=== PATIENT | male | born 1935 | race Caucasian/White ===

== ENCOUNTER 2021-05-31 09:26 | Day surgery (SDC) | payer MEDICARE ==
[2021-05-30 13:17] LABS: BASOPHILS # (AUTO) 0.1 X10'3 (0-0.2); BASOPHILS % (AUTO) 0.8 % (0-1); EOSINOPHILS # (AUTO) 0.5 X10'3 (0-0.9); EOSINOPHILS % (AUTO) 4.6 % (0-6); HEMATOCRIT 43.1 % (42.0-52.0); HEMOGLOBIN 14.5 g/dl (14.0-17.9); LYMPHOCYTES # (AUTO) 1.8 X10'3 (1.1-4.8); LYMPHOCYTES % (AUTO) 17.7 % (21-51); MEAN CORPUSCULAR HGB CONC 33.6 g/dL (33.0-36.5); MEAN CORPUSCULAR VOLUME 95.4 FL (78-98); MEAN PLATELET VOLUME 7.1 FL (7.4-10.4); MONOCYTES # (AUTO) 0.8 X10'3 (0-0.9); NEUTROPHILS # (AUTO) 6.9 X10'3 (1.8-7.7); NEUTROPHILS % (AUTO) 68.9 % (42-75); PLATELET COUNT 372 X10'3 (140-440); RED BLOOD COUNT 4.52 X10'6 (4.70-6.10); RED CELL DISTRIBUTION WIDTH 13.5 % (11.5-14.5); WHITE BLOOD COUNT 9.9 X10'3 (4.5-11.0)
[2021-05-30 13:31] LABS: PARTIAL THROMBOPLASTIN TIME 30 SECONDS (22-32)
[2021-05-30 13:32] LABS: ALBUMIN 3.9 G/DL (3.4-5.0); ANION GAP 9 (8-16); BLOOD UREA NITROGEN 24 MG/DL (7-18); BUN/CREATININE RATIO 15.7 (5.4-32.0); CALCIUM 9.2 MG/DL (8.5-10.1); CHLORIDE 106 MMOL/L (99-107); CREATININE 1.53 MG/DL (0.60-1.10); GLUCOSE 81 MG/DL (70-104); POTASSIUM 4.3 MMOL/L (3.5-5.1); SODIUM 143 MMOL/L (135-145); TOTAL CARBON DIOXIDE 28.3 MMOL/L (24-32); eGFR 43 ML/MIN
[~2021-05-31] VITALS: Ht 182.9 cm; Wt 87.7 kg
[2021-05-31] VITALS (10 sets, daily range): BP systolic 123–175; BP diastolic 60–82
[2021-05-31] MEDS ORDERED: cefazolin/dext.iso 2gm/50ml 50 ML IV ONE (09:42)
[2021-05-31] MEDS ORDERED: normal saline 1000ml 1,000 ML IV SCH ×2 (09:45→13:00)
[2021-05-31] MEDS ORDERED: fentaNYL/PF 50MCG/1 ML 2ML syringe ONE (09:47)
[2021-05-31] MEDS ORDERED: ceFAZolin 1000mg inj ONE (09:47)
[2021-05-31] MEDS ORDERED: midazolam 1 mg/ML 2ml injection ONE ×2 (09:47→11:07)
[2021-05-31] MEDS ORDERED: LIDOcaine 1% w/EPI 1:100,000 30ml vial (MDV) ONE (09:59)
[2021-05-31] MEDS ORDERED: POTA-280 PO (10:05)
[2021-05-31] MEDS ORDERED: FLO0.4C PO (10:05)
[2021-05-31] MEDS ORDERED: GABAPENTIN PO (10:05)
[2021-05-31] MEDS ORDERED: RIVA1.5C30 PO (10:05)
[2021-05-31] MEDS ORDERED: CARB-17 PO (10:05)
[2021-05-31] MEDS ORDERED: GLYC1TAB23 PO (10:05)
[2021-05-31] MEDS ORDERED: ESCI-8 PO (10:05)
[2021-05-31] MEDS ORDERED: CARB1TAB42 PO (10:05)
[2021-05-31] MEDS ORDERED: ROPI2TAB7 PO (10:05)
[2021-05-31] MEDS ORDERED: PANT40TA54 PO (10:05)
[2021-05-31] MEDS ORDERED: MEMA5TAB42 PO (10:05)
[2021-05-31] MEDS ORDERED: NIAC500C12 PO (10:06)
[2021-05-31] MEDS ORDERED: ENTA200T23 PO (10:12)
[2021-05-31] MEDS ORDERED: ASPI81TA52 PO (10:12)
[2021-05-31] MEDS ORDERED: LEVO15TA5 PO (10:12)
[2021-05-31] MEDS ORDERED: LISI20TA28 PO (10:12)
[2021-05-31] MEDS ORDERED: MONT-40 PO (10:12)
[2021-05-31] MEDS ORDERED: LEVO75TA PO (10:12)
[2021-05-31] MEDS ORDERED: PRIM50TA27 PO (10:15)
[2021-05-31] MEDS ORDERED: CHOL20002 PO (10:15)
[2021-05-31] MEDS ORDERED: HYDROcodone/acetaminophen 5mg/325mg tablet PO PRN (12:55)
[2021-05-31] MEDS ORDERED: HYDROcodone/acetaminophen 10/325mg tab PO PRN (12:55)
[2021-05-31] MEDS ORDERED: potassium chloride 10mEq ER tablet PO SCH (13:00)
[2021-05-31] MEDS ORDERED: GABA300C PO (13:06)
--- NOTE | 2021-05-31 13:42 | NUR ---
Requested pharmacy remove patient's home medications from [facility], this request was refused. Sinemet was the only medication administered from home medication list per MD
[2021-05-31] MEDS ORDERED: vancomycin/NS 1 GM ADD-VANTAGE 250 ML X 1 DOSE IV ONE (14:00)
--- NOTE | 2021-05-31 17:13 | NUR ---
Problems reprioritized. Patient report given, questions answered & plan of care reviewed with Carolyn MEZA.
[2021-05-31] MEDS ORDERED: glycopyrrolate 1mg tablet PO SCH (20:00)
[2021-05-31] MEDS ORDERED: memantine 5mg tablet PO SCH (20:00)
[2021-05-31] MEDS ORDERED: tamsulosin 0.4mg capsule PO SCH (20:00)
[2021-05-31] MEDS ORDERED: carbidopa/levodopa 50/200mg CR tablet PO SCH (21:00)
[2021-05-31] MEDS ORDERED: primidone 50mg tablet PO SCH (21:00)
[2021-06-01] MEDS ORDERED: aspirin 81mg, enteric-coated 1 TAB TABLET.DR PO SCH (08:00)
[2021-06-01] MEDS ORDERED: cholecalciferol (vitamin D3) 1,000 unit (25mcg) tablet PO SCH (08:00)
[2021-06-01] MEDS ORDERED: montelukast 10mg tablet PO SCH (08:00)
[2021-06-01] MEDS ORDERED: gabapentin 300mg capsule PO SCH (08:00)
[2021-06-01] MEDS ORDERED: ESCITALOPRAM OXALATE 5 MG TABLET PO SCH (08:00)
[2021-06-01] MEDS ORDERED: LEVOMEFOLATE 15 MG PO SCH (08:00)
[2021-06-01] MEDS ORDERED: niacin 500mg timed-release capsule PO SCH (08:00)
[2021-06-01] MEDS ORDERED: lisinopril 20mg tablet PO SCH (08:00)
[2021-06-01] MEDS ORDERED: levoTHYROXINE 75mcg tablet PO SCH (08:00)
[2021-06-01] MEDS ORDERED: pantoprazole 40mg Tablet.DR PO SCH (08:00)
[2021-06-01] MEDS ORDERED: ROPINIRole 1mg tablet PO SCH (08:00)
== END 2021-05-31 17:45 | disposition home or self-care (01) ==
LOC: SSTAY O 09:26
PROVIDERS: ATTEND Internal Medicine Cardiovascular Disease
DX: I49.5 Sick sinus syndrome (principal); I25.10 Atherosclerotic heart disease of native coronary artery without angina pectoris; I10 Essential (primary) hypertension; E78.5 Hyperlipidemia, unspecified; M54.30 Sciatica, unspecified side; G20 Parkinson's disease; E78.49 Other hyperlipidemia; Z95.1 Presence of aortocoronary bypass graft; Z88.1 Allergy status to other antibiotic agents; Z79.82 Long term (current) use of aspirin; Z79.899 Other long term (current) drug therapy; Z85.46 Personal history of malignant neoplasm of prostate; Z79.01 Long term (current) use of anticoagulants; Z98.1 Arthrodesis status; Z72.89 Other problems related to lifestyle; Z87.891 Personal history of nicotine dependence; Z80.0 Family history of malignant neoplasm of digestive organs; Z82.49 Family history of ischemic heart disease and other diseases of the circulatory system
CPT/HCPCS: 33208; 36415; 71046; 80048; 85025; 85610; 85730; 93005; 99152; 99153; C1785; C1894; C1898; J0690; J2250; J3010; J3370; J3490; A4565; A6258; A6449

== ENCOUNTER 2023-09-13 06:21 | Inpatient (IN) | payer MEDICARE ==
[~2023-09-13] VITALS: Ht 182.9 cm; Wt 84.1 kg
[~2023-09-13 06:21] MED LIST: ASPI81TA52 PO; CARB-17 PO; CARB1TAB42 PO; CHOL20002 PO; ENTA200T23 PO; ESCI-8 PO; FLO0.4C PO; GABA300C PO; GLYC1TAB23 PO; LEVO15TA5 PO; LEVO75TA PO; LISI20TA28 PO; MEMA5TAB42 PO; MONT-40 PO; NIAC500C12 PO; PANT40TA54 PO; POTA-280 PO; PRIM50TA27 PO; RIVA1.5C30 PO; ROPI2TAB53 PO
[2023-09-13 08:33] LABS: BASOPHILS # (AUTO) 0.2 X10'3 (0-0.2); BASOPHILS % (AUTO) 0.8 % (0-1); EOSINOPHILS # (AUTO) 0.2 X10'3 (0-0.9); EOSINOPHILS % (AUTO) 0.9 % (0-6); HEMATOCRIT 38.2 % (42.0-52.0); HEMOGLOBIN 12.8 g/dl (14.0-17.9); LYMPHOCYTES % (AUTO) 5.2 % (21-51); MEAN CORPUSCULAR HEMOGLOBIN 30.6 PG (27.0-31.0); MEAN CORPUSCULAR HGB CONC 33.5 g/dL (33.0-36.5); MEAN CORPUSCULAR VOLUME 91.3 FL (78-98); MEAN PLATELET VOLUME 6.5 FL (7.4-10.4); MONOCYTES # (AUTO) 1.2 X10'3 (0-0.9); MONOCYTES % (AUTO) 6.4 % (2-12); NEUTROPHILS % (AUTO) 86.7 % (42-75); PLATELET COUNT 595 X10'3 (140-440); RED BLOOD COUNT 4.19 X10'6 (4.70-6.10); RED CELL DISTRIBUTION WIDTH 14.4 % (11.5-14.5); WHITE BLOOD COUNT 18.5 X10'3 (4.5-11.0)
[2023-09-13] MEDS: normal saline 1000ML IV soln IVB ONE (08:57)
[2023-09-13 09:00] LABS: ALBUMIN 3.2 G/DL (3.4-5.0); ALBUMIN/GLOBULIN RATIO 0.7 (1.1-1.5); ALKALINE PHOSPHATASE 126 IU/L (46-116); ANION GAP 10 (8-16); BILIRUBIN,TOTAL 0.4 MG/DL (0.1-1.0); BLOOD UREA NITROGEN 21 MG/DL (7-18); CALCIUM 8.8 MG/DL (8.5-10.1); CHLORIDE 104 MMOL/L (99-107); GLUCOSE 96 MG/DL (70-104); LIPASE 40 U/L (16-77); POTASSIUM 4.8 MMOL/L (3.5-5.1); SODIUM 139 MMOL/L (135-145); TOTAL CARBON DIOXIDE 24.7 MMOL/L (24-32); TOTAL PROTEIN 7.6 G/DL (6.4-8.2); eCRCL 38 ML/MIN; eGFR 44 ML/MIN
[2023-09-13 09:21] LABS: ALANINE AMINOTRANSFERASE < 6 U/L (12-78); ASPARTATE AMINO TRANSFERASE 11 U/L (10-37)
[2023-09-13] MEDS ORDERED: AMIT50TA15 PO (10:20)
[2023-09-13] MEDS ORDERED: potassium Cl 40MEQ/1/2NS 520ml 520 ML IV PRN (11:40)
[2023-09-13] MEDS ORDERED: potassium Cl 20 mEq SR tablet PO PRN ×2 (11:40)
[2023-09-13] MEDS ORDERED: magnesium 2GM in 50ml NS 50 ML IV PRN (11:40)
[2023-09-13] MEDS ORDERED: magnesium hydroxide 30ml (MOM) UD suspension PO PRN (11:40)
[2023-09-13] MEDS ORDERED: HYDROmorphone/PF 0.2 MG/ML SYRINGE IV PRN (11:40)
[2023-09-13] MEDS ORDERED: acetaminophen 325mg tablet PO PRN (11:40)
[2023-09-13] MEDS ORDERED: bisacodyl 10mg suppository rectal RC PRN (11:40)
[2023-09-13] MEDS ORDERED: HYDROcodone/acetaminophen 5mg/325mg tablet PO PRN (11:40)
[2023-09-13] MEDS ORDERED: HYDROmorphone inj. 0.5 MG/0.5 ML DISP.SYRIN IV PRN (11:40)
[2023-09-13] MEDS ORDERED: mag hydrox/Alum hydrox/simeth 30ml oral suspension PO PRN (11:40)
[2023-09-13] MEDS ORDERED: magnesium 4gm in 100ml NS 100 ML IV PRN (11:40)
[2023-09-13] MEDS ORDERED: magnesium Cl slow-release 64mg tablet PO PRN (11:40)
[2023-09-13] MEDS ORDERED: ondansetron/PF 4mg/2ml inj IV PRN (11:40)
[2023-09-13] MEDS ORDERED: acetaminophen 650mg rectal suppository RC PRN (11:40)
[2023-09-13] MEDS ORDERED: ondansetron 4mg rapidly disintigrating tab PO PRN (11:40)
[2023-09-13] MEDS: MEROPENEM 1GM/NS 100ML IVPB 100 ML IV STA (12:00)
[2023-09-13] MEDS: normal saline 1000ml 1,000 ML IV SCH (12:41)
[2023-09-13 15:00] VITALS: RESP 16; O2SAT 95
[2023-09-13 18:00] VITALS: BP 131/46; PULSE 92; RESP 15; TEMP 98.2; O2SAT 95
[2023-09-13] MEDS: HYDROcodone/acetaminophen 10/325mg tab PO PRN (19:36)
[2023-09-13] MEDS: MEROPENEM 1GM/NS 100ML IVPB 100 ML IV SCH (19:36)
[2023-09-13] MEDS: memantine 5mg tablet PO SCH (19:37)
[2023-09-13] MEDS: tamsulosin 0.4mg capsule PO SCH (19:37)
[2023-09-13] MEDS: heparin, porcine 5000 units/ml vial SQ SCH (19:38)
[2023-09-13] MEDS: glycopyrrolate 1mg tablet PO SCH (19:39)
[2023-09-13] MEDS: primidone 50mg tablet PO SCH (19:41)
[2023-09-13] MEDS: carbidopa/levodopa 50/200mg CR tablet PO SCH (19:45)
[2023-09-13] MEDS: docusate sod 100mg capsule PO SCH (20:00)
[2023-09-13] MEDS: K and/or MAG REPLACEMENT MC SCH (20:00)
[2023-09-13 22:00] VITALS: BP 93/63; PULSE 87; RESP 19; TEMP 97.2; O2SAT 94
[2023-09-14] MEDS: acetaminophen 325mg tablet PO PRN (01:09)
[2023-09-14 06:26] VITALS: BP 130/72; PULSE 62; RESP 16; TEMP 97.8; O2SAT 90
[2023-09-14 06:59] LABS: BASOPHILS # (AUTO) 0.1 X10'3 (0-0.2); BASOPHILS % (AUTO) 0.6 % (0-1); EOSINOPHILS # (AUTO) 0.1 X10'3 (0-0.9); EOSINOPHILS % (AUTO) 0.4 % (0-6); HEMATOCRIT 34.8 % (42.0-52.0); HEMOGLOBIN 11.4 g/dl (14.0-17.9); LYMPHOCYTES # (AUTO) 1.7 X10'3 (1.1-4.8); LYMPHOCYTES % (AUTO) 9.5 % (21-51); MEAN CORPUSCULAR HGB CONC 32.8 g/dL (33.0-36.5); MEAN CORPUSCULAR VOLUME 91.4 FL (78-98); MEAN PLATELET VOLUME 6.8 FL (7.4-10.4); MONOCYTES # (AUTO) 1.3 X10'3 (0-0.9); MONOCYTES % (AUTO) 7.4 % (2-12); NEUTROPHILS # (AUTO) 14.5 X10'3 (1.8-7.7); NEUTROPHILS % (AUTO) 82.1 % (42-75); PLATELET COUNT 477 X10'3 (140-440); RED BLOOD COUNT 3.81 X10'6 (4.70-6.10); RED CELL DISTRIBUTION WIDTH 14.3 % (11.5-14.5); WHITE BLOOD COUNT 17.6 X10'3 (4.5-11.0)
[2023-09-14 07:22] LABS: ALBUMIN 2.3 G/DL (3.4-5.0); ALBUMIN/GLOBULIN RATIO 0.6 (1.1-1.5); ANION GAP 8 (8-16); ASPARTATE AMINO TRANSFERASE 6 U/L (10-37); BILIRUBIN,TOTAL 0.5 MG/DL (0.1-1.0); BLOOD UREA NITROGEN 23 MG/DL (7-18); BUN/CREATININE RATIO 14.3 (10.0-20.0); CALCIUM 8.1 MG/DL (8.5-10.1); CHLORIDE 105 MMOL/L (99-107); CREATININE 1.61 MG/DL (0.60-1.10); GLUCOSE 93 MG/DL (70-104); MAGNESIUM 1.7 MG/DL (1.5-2.4); POTASSIUM 5.2 MMOL/L (3.5-5.1); SODIUM 137 MMOL/L (135-145); TOTAL CARBON DIOXIDE 24.1 MMOL/L (24-32); TOTAL PROTEIN 6.3 G/DL (6.4-8.2); eCRCL 35 ML/MIN; eGFR 41 ML/MIN
[2023-09-14 07:23] LABS: ALKALINE PHOSPHATASE 96 IU/L (46-116); THYROID STIMULATING HORMONE 2.23 ulU/ml (0.34-4.50)
[2023-09-14 07:25] LABS: ALANINE AMINOTRANSFERASE < 6 U/L (12-78)
[2023-09-14] MEDS: gabapentin 300mg capsule PO SCH (07:56)
[2023-09-14] MEDS: aspirin 81mg, enteric-coated 1 TAB TABLET.DR PO SCH (07:56)
[2023-09-14] MEDS: montelukast 10mg tablet PO SCH (07:56)
[2023-09-14] MEDS: pantoprazole 40mg Tablet.DR PO SCH (07:57)
[2023-09-14] MEDS: levoTHYROXINE 75mcg tablet PO SCH (07:57)
[2023-09-14] MEDS: ROPINIRole 1mg tablet PO SCH (07:58)
[2023-09-14] MEDS: ESCITALOPRAM 10 mg tablet 10 MG TABLET PO SCH (07:59)
[2023-09-14 08:00] VITALS: RESP 16; O2SAT 92
[2023-09-14] MEDS: LEVOMEFOLATE CALCIUM 15 MG PO SCH (08:00)
[2023-09-14 09:29] LABS: BILIRUBIN,URINE NEGATIVE (Neg); CLARITY,URINE CLOUDY (Clear); COLOR,URINE YELLOW (Yellow); GLUCOSE, URINE NEGATIVE (Neg); KETONES,URINE NEGATIVE (Neg); LEUKOCYTE ESTERASE ,URINE LARGE (Neg); NITRITES, URINE POSITIVE (Neg); OCCULT BLOOD,URINE LARGE (Neg); PROTEIN,URINE >=300 mg/dl (Neg); UROBILINOGEN,URINE 0.2 E.U/dL (0.2-1.0)
[2023-09-14 09:39] LABS: UA COLLECTION TYPE FOLEY CATH
[2023-09-14 09:43] LABS: BACTERIA,URINE FEW /HPF (Neg); MUCUS STRANDS NONE SEEN /LPF (Neg); SQUAMOUS EPITHELIAL CELL,UR NONE SEEN /LPF (FEW); WBC,URINE TNTC /HPF (0-4)
[2023-09-14 09:54] LABS: TOTAL PROTEIN,URINE RANDOM 781.6 MG/DL
[2023-09-14 10:00] VITALS: BP 115/58; PULSE 77; RESP 19; TEMP 99.4; O2SAT 94
[2023-09-14 10:20] LABS: UA EOSINOPHILS FEW EOS /HPF
[2023-09-14] MEDS ORDERED: ATOR20TA66 (15:57)
[2023-09-14] MEDS ORDERED: METH1TAB32 (15:57)
[2023-09-14] MEDS ORDERED: PRIM50TA5 (15:57)
[2023-09-14] MEDS ORDERED: LISI10TA27 PO (15:57)
[2023-09-14] MEDS ORDERED: GABA300T28 (15:57)
[2023-09-14] MEDS ORDERED: CARB-13 PO (15:57)
[2023-09-14] MEDS ORDERED: ENTA200T5 PO (15:57)
[2023-09-14] MEDS ORDERED: AMIT10TA6 (16:21)
[2023-09-14 18:00] VITALS: BP 127/76; PULSE 84; RESP 17; TEMP 98.7; O2SAT 92
[2023-09-14 20:00] VITALS: RESP 20; O2SAT 94
[2023-09-14 22:00] VITALS: BP 140/56; PULSE 79; RESP 20; TEMP 98.5; O2SAT 94
[2023-09-15 06:00] VITALS: BP 140/59; PULSE 71; RESP 20; TEMP 98.1; O2SAT 96
[2023-09-15 07:16] LABS: ALBUMIN 2.1 G/DL (3.4-5.0); ALBUMIN/GLOBULIN RATIO 0.5 (1.1-1.5); ALKALINE PHOSPHATASE 171 IU/L (46-116); ANION GAP 9 (8-16); ASPARTATE AMINO TRANSFERASE 12 U/L (10-37); BILIRUBIN,TOTAL 0.3 MG/DL (0.1-1.0); BLOOD UREA NITROGEN 20 MG/DL (7-18); BUN/CREATININE RATIO 15.7 (10.0-20.0); CHLORIDE 109 MMOL/L (99-107); CREATININE 1.27 MG/DL (0.60-1.10); GLUCOSE 90 MG/DL (70-104); MAGNESIUM 1.8 MG/DL (1.5-2.4); POTASSIUM 4.2 MMOL/L (3.5-5.1); SODIUM 140 MMOL/L (135-145); TOTAL CARBON DIOXIDE 22.2 MMOL/L (24-32); TOTAL PROTEIN 6.1 G/DL (6.4-8.2); eCRCL 45 ML/MIN; eGFR 54 ML/MIN
[2023-09-15 07:19] LABS: ALANINE AMINOTRANSFERASE < 6 U/L (12-78)
[2023-09-15 07:32] LABS: BASOPHILS # (AUTO) 0.1 X10'3 (0-0.2); BASOPHILS % (AUTO) 1.3 % (0-1); EOSINOPHILS # (AUTO) 0.5 X10'3 (0-0.9); EOSINOPHILS % (AUTO) 4.3 % (0-6); HEMATOCRIT 28.1 % (42.0-52.0); HEMOGLOBIN 9.5 g/dl (14.0-17.9); LYMPHOCYTES # (AUTO) 2.1 X10'3 (1.1-4.8); LYMPHOCYTES % (AUTO) 18.9 % (21-51); MEAN CORPUSCULAR HEMOGLOBIN 30.8 PG (27.0-31.0); MEAN CORPUSCULAR HGB CONC 33.7 g/dL (33.0-36.5); MEAN CORPUSCULAR VOLUME 91.3 FL (78-98); MEAN PLATELET VOLUME 6.9 FL (7.4-10.4); MONOCYTES % (AUTO) 8.7 % (2-12); NEUTROPHILS # (AUTO) 7.4 X10'3 (1.8-7.7); NEUTROPHILS % (AUTO) 66.8 % (42-75); PLATELET COUNT 393 X10'3 (140-440); RED BLOOD COUNT 3.08 X10'6 (4.70-6.10); RED CELL DISTRIBUTION WIDTH 14.6 % (11.5-14.5); WHITE BLOOD COUNT 11.1 X10'3 (4.5-11.0)
[2023-09-15 08:00] VITALS: RESP 16; O2SAT 96
[2023-09-15] MEDS ORDERED: bisacodyl 5mg tablet.DR PO PRN (09:50)
[2023-09-15 10:00] VITALS: BP 124/86; PULSE 82; RESP 16; TEMP 97.6; O2SAT 96
[2023-09-15] MEDS ORDERED: LISI5TAB22 PO (10:26)
[2023-09-15] MEDS ORDERED: LUTEIN PO (10:26)
[2023-09-15] MEDS ORDERED: MULT-1085 PO (10:26)
[2023-09-15 20:00] VITALS: RESP 16; O2SAT 96
[2023-09-15 22:00] VITALS: BP 157/81; PULSE 72; RESP 18; TEMP 97.9; O2SAT 95
[2023-09-16] MEDS: temazepam 15mg capsule PO PRN (00:13)
[2023-09-16 06:00] VITALS: BP 156/78; PULSE 70; RESP 16; TEMP 98; O2SAT 91
[2023-09-16 06:45] LABS: BASOPHILS # (AUTO) 0.1 X10'3 (0-0.2); BASOPHILS % (AUTO) 1.1 % (0-1); EOSINOPHILS # (AUTO) 0.7 X10'3 (0-0.9); EOSINOPHILS % (AUTO) 8.1 % (0-6); HEMATOCRIT 28.7 % (42.0-52.0); HEMOGLOBIN 9.7 g/dl (14.0-17.9); LYMPHOCYTES # (AUTO) 1.4 X10'3 (1.1-4.8); LYMPHOCYTES % (AUTO) 17.2 % (21-51); MEAN CORPUSCULAR HEMOGLOBIN 30.6 PG (27.0-31.0); MEAN CORPUSCULAR HGB CONC 33.7 g/dL (33.0-36.5); MEAN CORPUSCULAR VOLUME 90.8 FL (78-98); MEAN PLATELET VOLUME 6.9 FL (7.4-10.4); MONOCYTES # (AUTO) 0.7 X10'3 (0-0.9); MONOCYTES % (AUTO) 8.7 % (2-12); NEUTROPHILS # (AUTO) 5.5 X10'3 (1.8-7.7); NEUTROPHILS % (AUTO) 64.9 % (42-75); PLATELET COUNT 397 X10'3 (140-440); RED BLOOD COUNT 3.16 X10'6 (4.70-6.10); RED CELL DISTRIBUTION WIDTH 14.1 % (11.5-14.5); WHITE BLOOD COUNT 8.4 X10'3 (4.5-11.0)
[2023-09-16 06:53] LABS: ALANINE AMINOTRANSFERASE 6 U/L (12-78); ALBUMIN 2.2 G/DL (3.4-5.0); ALBUMIN/GLOBULIN RATIO 0.6 (1.1-1.5); ALKALINE PHOSPHATASE 89 IU/L (46-116); ANION GAP 11 (8-16); ASPARTATE AMINO TRANSFERASE 16 U/L (10-37); BILIRUBIN,TOTAL 0.4 MG/DL (0.1-1.0); BLOOD UREA NITROGEN 16 MG/DL (7-18); BUN/CREATININE RATIO 14.5 (10.0-20.0); CALCIUM 7.8 MG/DL (8.5-10.1); CHLORIDE 109 MMOL/L (99-107); GLUCOSE 88 MG/DL (70-104); MAGNESIUM 1.4 MG/DL (1.5-2.4); POTASSIUM 3.7 MMOL/L (3.5-5.1); SODIUM 142 MMOL/L (135-145); TOTAL CARBON DIOXIDE 21.9 MMOL/L (24-32); TOTAL PROTEIN 6.2 G/DL (6.4-8.2); eCRCL 52 ML/MIN; eGFR 63 ML/MIN
[2023-09-16] MEDS: carbidopa/levodopa 10/100mg tab PO SCH (07:50)
[2023-09-16 11:30] VITALS: BP 139/69; PULSE 67; RESP 15; TEMP 97.9; O2SAT 97
[2023-09-16] MEDS ORDERED: magnesium 4gm in 100ml NS 100 ML IV PRN (13:20)
[2023-09-16] MEDS ORDERED: potassium Cl 20 mEq SR tablet PO PRN ×2 (13:20)
[2023-09-16] MEDS ORDERED: potassium Cl 40MEQ/1/2NS 520ml 520 ML IV PRN (13:20)
[2023-09-16] MEDS ORDERED: magnesium 2GM in 50ml NS 50 ML IV PRN (13:20)
[2023-09-16] MEDS: magnesium Cl slow-release 64mg tablet PO PRN (13:39)
[2023-09-16 18:00] VITALS: BP 157/76; PULSE 67; RESP 16; TEMP 97.6; O2SAT 94
[2023-09-16] MEDS: K and/or MAG REPLACEMENT MC SCH (20:00)
[2023-09-16 22:00] VITALS: BP 152/75; PULSE 74; RESP 16; TEMP 97.4; O2SAT 95
[2023-09-17 06:45] LABS: BASOPHILS # (AUTO) 0.1 X10'3 (0-0.2); BASOPHILS % (AUTO) 1.3 % (0-1); EOSINOPHILS # (AUTO) 0.8 X10'3 (0-0.9); HEMATOCRIT 33.4 % (42.0-52.0); HEMOGLOBIN 11.1 g/dl (14.0-17.9); LYMPHOCYTES # (AUTO) 1.5 X10'3 (1.1-4.8); MEAN CORPUSCULAR HEMOGLOBIN 30.2 PG (27.0-31.0); MEAN CORPUSCULAR HGB CONC 33.3 g/dL (33.0-36.5); MEAN CORPUSCULAR VOLUME 90.5 FL (78-98); MEAN PLATELET VOLUME 6.9 FL (7.4-10.4); MONOCYTES # (AUTO) 0.8 X10'3 (0-0.9); MONOCYTES % (AUTO) 9.5 % (2-12); NEUTROPHILS # (AUTO) 4.8 X10'3 (1.8-7.7); NEUTROPHILS % (AUTO) 60.2 % (42-75); PLATELET COUNT 453 X10'3 (140-440); RED BLOOD COUNT 3.68 X10'6 (4.70-6.10); RED CELL DISTRIBUTION WIDTH 14.3 % (11.5-14.5)
[2023-09-17 06:55] VITALS: BP 163/85; PULSE 60; RESP 18; TEMP 97.6; O2SAT 97
[2023-09-17 07:11] LABS: ALANINE AMINOTRANSFERASE 7 U/L (12-78); ALBUMIN 2.2 G/DL (3.4-5.0); ALBUMIN/GLOBULIN RATIO 0.5 (1.1-1.5); ALKALINE PHOSPHATASE 104 IU/L (46-116); ANION GAP 8 (8-16); ASPARTATE AMINO TRANSFERASE 18 U/L (10-37); BILIRUBIN,TOTAL 0.3 MG/DL (0.1-1.0); BLOOD UREA NITROGEN 13 MG/DL (7-18); BUN/CREATININE RATIO 12.1 (10.0-20.0); CALCIUM 8.2 MG/DL (8.5-10.1); CHLORIDE 110 MMOL/L (99-107); CREATININE 1.07 MG/DL (0.60-1.10); GLUCOSE 91 MG/DL (70-104); MAGNESIUM 1.6 MG/DL (1.5-2.4); SODIUM 142 MMOL/L (135-145); TOTAL PROTEIN 6.7 G/DL (6.4-8.2); eCRCL 53 ML/MIN; eGFR 65 ML/MIN
[2023-09-17 08:20] VITALS: RESP 18; O2SAT 97
[2023-09-17 10:00] VITALS: BP 156/74; PULSE 61; RESP 17; TEMP 98.4; O2SAT 95
== END 2023-09-17 16:39 | disposition home health service (06) | DRG 698 ==
LOC: ER 06:21 → ED HOLD 11:42 → ORTHO 4S 14:45
PROVIDERS: ADMIT Family Medicine; ATTEND Family Medicine
DX: T83.511A Infection and inflammatory reaction due to indwelling urethral catheter, initial encounter (principal); A41.9 Sepsis, unspecified organism; G93.41 Metabolic encephalopathy; N13.6 Pyonephrosis; N17.9 Acute kidney failure, unspecified; Z16.12 Extended spectrum beta lactamase (ESBL) resistance; N35.819 Other urethral stricture, male, unspecified site; E03.9 Hypothyroidism, unspecified; I10 Essential (primary) hypertension; I25.10 Atherosclerotic heart disease of native coronary artery without angina pectoris; F32.A Depression, unspecified; Z66 Do not resuscitate; G20.A1 Parkinson's disease without dyskinesia, without mention of fluctuations; E78.5 Hyperlipidemia, unspecified; K59.00 Constipation, unspecified; Y84.6 Urinary catheterization as the cause of abnormal reaction of the patient, or of later complication, without mention of misadventure at the time of the procedure; Z79.82 Long term (current) use of aspirin; Z79.899 Other long term (current) drug therapy; Z98.1 Arthrodesis status; Z88.1 Allergy status to other antibiotic agents; Z85.51 Personal history of malignant neoplasm of bladder; Z85.46 Personal history of malignant neoplasm of prostate; Z95.1 Presence of aortocoronary bypass graft; Z92.3 Personal history of irradiation; Z95.0 Presence of cardiac pacemaker; Y92.89 Other specified places as the place of occurrence of the external cause
CPT/HCPCS: 36415; 74176; 76770; 80053; 81001; 82570; 83690; 83735; 83935; 84133; 84145; 84156; 84300; 84443; 85025; 87077; 87081; 87088; 87186; 87207; 96360; 97110; 97161; 97530; 99285; A4314; A4333; A4615; A5200; A6213; A6258; A6449; G0378; J1644; J2185; J7030